=== PATIENT | female | born 1995 | race Asian ===

== ENCOUNTER 2023-12-01 22:02 | Emergency (ER) | payer OTHER ==
--- NOTE | 2023-12-01 22:59 | ED Physician Documentation ---
PD HPI SYNCOPE - Stated complaint Stated Complaint: SYNCOPE/HIT HEAD - Chief complaint Chief Complaint: Trauma Hd/Nk - History obtained from History obtained from: Patient - History of Present Illness Witnessed: Witnessed - Additional information Additional information: HPI from patient as well as her friend (in ED at bedside). Patient was standing at friend's door talking to her when she had rapid onset of generalized weakness, lightheadedness and sensation she was going to pass out. She then fell to floor with LOC, striking face/head on bedframe. Patient's friend says patient was unconscious and not responding but breathing. Friend describes patient traci eared to be pounding her fists on the ground; her description is possibly that of seizure activity. LOC estimated to be 1-2 minutes but rapid recovery to baseline within the next few minutes. Patient c/o facial pain and mild generalized headache. Had one previous episode of syncope without clear cause despite testing (at ED last year). She denies n/v, visual changes, focal weakness. PD PAST MEDICAL HISTORY - Past Medical History Past Medical History: No - Past Surgical History Past Surgical History: No - Allergies Allergies/Adverse Reactions: Allergies Allergy/AdvReac Type Severity Reaction Status Date / Time No Known Drug Allergies Allergy Verified 12/01/23 22:08 - Social History Does the pt smoke?: No Smoking Status: Never smoker Does the pt drink ETOH?: No Does the pt have substance abuse?: No - Immunizations Immunizations are current?: Yes - POLST Patient has POLST: No PD ED PE NORMAL - Vitals Vital signs reviewed: Yes - General General: Alert and oriented X 3, No acute distress, Well developed/nourished - Neck Neck: No bony TTP - Cardiac Cardiac: RRR, No murmur, No gallop, No rub - Respiratory Respiratory: No respiratory distress, Clear bilaterally - Abdomen Abdomen: Soft, Non tender - Back Back: No spinal TTP - Extremities Extremities: No deformity, No tenderness to palpate, Normal ROM s pain - Neuro Neuro: Alert and oriented X 3, ledger poster 2-12 intact, No motor deficit, No sensory deficit, Normal speech Eye Opening: Spontaneous Motor: Obeys Commands Verbal: Oriented GCS Score: 15 PD ED PE EXPANDED - HEENT HEENT: PERRL, EOMI HEENT Visual: 1 - abrasion, swelling, tenderness 2 - abrasion, swelling, tenderness 3 - abrasion 4 - abrasion Results - Vitals Vitals: Vital Signs - 24 hr 12/01/23 12/02/23 12/02/23 22:09 00:00 01:05 Temperature 36.8 C Heart Rate 82 88 90 Respiratory 16 18 78 H Rate Blood Pressure 120/73 127/90 H 125/88 H O2 Saturation 100 100 98 Oxygen O2 Source Room air - EKG (time done) No standard instances EKG releavant findings:: EKG personally interpreted by author of this note. Relevant findings are: Rate: Rate (enter#) (87) Rhythm: NSR [place]: Normal Intervals: Normal VT QRS: Normal Ischemia: Normal ST segments, T wave inversion (inverted T III, flat I aVF) - Labs Labs: Laboratory Tests 12/01/23 12/01/23 23:36 23:36 WBC 11.3 H RBC 4.82 Hgb 12.5 Hct 40.9 MCV 84.9 MCH 25.9 L MCHC 30.6 L RDW 13.2 Plt Count 335 MPV 10.1 Neut # (Auto) 8.4 H Lymph # (Auto) 2.0 [place] # (Auto) 0.8 Eos # (Auto) 0.1 Baso # (Auto) 0.1 Absolute Nucleated RBC 0.00 Nucleated RBC % 0.0 Sodium 137 Potassium 3.5 Chloride 102 Carbon Dioxide 24 Anion Gap 11.0 BUN 13 Creatinine 0.8 Estimated GFR (MDRD) 85 L Glucose 143 H Calcium 9.5 - Rads (name of study) CTH Relevant Findings:: Prelim report reviewed, See rad report PD Medical Decision Making - ED course Complexity details: reviewed results, re-evaluated patient, considered differential, d/w patient ED course: No concerning nor diagnostic findings on CBC (minimal leukocytosis noted), BMP (mild hyperglycemia noted, 143). Both of these abnormalities are mild and likely stress result due to the syncopal episode. Similarly, her blood pressure readings are initially high on presentation with gradual improvement without specific intervention. Likely had hypotensive syncope with reactive hypertension upon recovery. No concerning findings on CTH. there are a few linear superficial abrasions as documented on PE, above, as well as focus of swelling and TTP above left eye (left supraorbit/left forehead). Results d/w patient. Cause of her syncope is not apparent at this time. I advised her to seek follow up with her PCP; further testing might be needed even if symptoms do not reoccur. Return precautions reviewed. Note that ED RN's documentation of 78 respiratory rate is incorrect (patient had normal respiratory rate throughout ED stay). Departure - Departure Disposition: 01 Home, Self Care Clinical Impression: Syncope Qualifiers: Syncope type: unspecified Qualified Code(s): R55 - Syncope and collapse Facial contusion Qualifiers: Encounter type: initial encounter Qualified Code(s): S00.83XA - Contusion of other part of head, initial encounter Instructions: ED Fainting Unkn Cause Comments: There were no concerning nor diagnostic findings on tonight's test, including the CT scan of your head, blood tests, and EKG. The cause of your syncopal episode (fainting/passing out) is not apparent at this time but these test results do not suggest a specific nor concerning cause. Follow up with your primary care provider for reevaluation, next available appointment Forms: Activity restrictions Discharge Date/Time: 12/02/23 01:05
--- NOTE | 2023-12-01 23:39 | CT Report ---
PROCEDURE: Head WO INDICATIONS: syncope, head injury, headache TECHNIQUE: Noncontrast 4.5 mm thick angled axial sections acquired from the foramen magnum to the vertex. For r adiation dose reduction, the following was used: automated exposure control, adjustment of mA and/or kV according to patient size. COMPARISON: None. FINDINGS: Image quality: Excellent. CSF spaces: Basal cisterns are patent. No extra-axial fluid collections. Ventricles are normal in size and shape. Brain: No midline shift. No intracranial masses or hemorrhage. Quintero-white matter interface is norm al. Skull and face: Calvarium and visualized facial bones are intact, without suspicious lesions. Sinuses: Visualized sinuses and mastoids are clear. IMPRESSION: No acute intracranial pathology. Reviewed by: Torres Rios MD on 12/01/2023 11:38 PM PDT Approved by: Torres Rios MD on 12/01/2023 11:38 PM PDT Station ID: [id number]
[2023-12-01 23:52] LABS: BASOPHILS # (AUTO) 0.1 10^3/uL (0.0-0.1); BASOPHILS % (AUTO) 0.6 %; EOSINOPHILS # (AUTO) 0.1 10^3/uL (0.0-0.7); EOSINOPHILS % (AUTO) 0.7 %; HCT - HEMATOCRIT 40.9 % (37.0-47.0); HGB - HEMOGLOBIN 12.5 g/dL (12.0-16.0); LYMPHOCYTES % (AUTO) 17.5 %; MEAN CORPUSCULAR HEMOGLOBIN 25.9 pg (27.0-31.0); MEAN CORPUSCULAR HGB CONC 30.6 g/dL (32.0-36.0); MEAN CORPUSCULAR VOLUME 84.9 fL (81.0-99.0); MEAN PLATELET VOLUME 10.1 fL (7.9-10.8); MONOCYTES # (AUTO) 0.8 10^3/uL (0.0-1.0); NEUTROPHILS # (AUTO) 8.4 10^3/uL (1.5-6.6); NEUTROPHILS % (AUTO) 73.8 %; PLT - PLATELET COUNT 335 10^3/uL (130-450); RED BLOOD COUNT 4.82 10^6/uL (4.20-5.40); RED CELL DISTRIBUTION WIDTH 13.2 % (12.0-15.0); WHITE BLOOD COUNT 11.3 x10^3/uL (4.8-10.8)
[2023-12-02 00:17] LABS: CALCIUM 9.5 mg/dL (8.5-10.3); CREATININE 0.8 mg/dL (0.6-1.3); POTASSIUM 3.5 mmol/L (3.5-4.5)
[2023-12-02 01:25] VITALS: BP 125/88; O2SAT 98
== END 2023-12-02 01:05 | disposition home or self-care (01) ==
LOC: ED 22:02
DX: S00.83XA Contusion of other part of head, initial encounter (principal); W18.30XA Fall on same level, unspecified, initial encounter; R55 Syncope and collapse; D72.829 Elevated white blood cell count, unspecified; R73.9 Hyperglycemia, unspecified
CPT/HCPCS: 36415; 80048; 85025; 93005; 99283; 99284